=== PATIENT | female | born 2005 | race Two or more races ===

== ENCOUNTER 2024-05-27 09:26 | Emergency (ER) | payer OTHER ==
[~2024-05-27] VITALS: Ht 154.9 cm; Wt 72.3 kg
[2024-05-27] MEDS: ACETAMINOPHEN 500 MG TAB PO ONE (12:34)
[2024-05-27 13:07] VITALS: BP 122/58; TEMP 98.3; O2SAT 100
[2024-05-27] MEDS: KETOROLAC 60MG 2ML VIAL IM ONE (13:31)
== END 2024-05-27 13:49 | disposition home or self-care (01) ==
LOC: M ED 09:26
DX: S06.0X9A Concussion with loss of consciousness of unspecified duration, initial encounter (principal); Y92.9 Unspecified place or not applicable; Y93.9 Activity, unspecified; Y99.0 Civilian activity done for income or pay; W00.0XXA Fall on same level due to ice and snow, initial encounter
CPT/HCPCS: 70450; 72125; 96372; 99284; J1885

== ENCOUNTER 2024-06-02 18:57 | Inpatient (IN) | payer OTHER ==
[~2024-06-02] VITALS: Ht 154.9 cm; Wt 76.2 kg
[2024-06-02 19:48] LABS: BASO % 0.3 % (0.0-1.0); EOS # 0.2 10^3/uL (0.0-0.5); EOS % 1.6 % (0.0-3.0); HEMOGLOBIN 11.5 g/dl (12.0-15.5); LYMPH # 1.8 10^3/uL (1.5-5.0); LYMPH % 17.9 % (24.0-44.0); MEAN CORPUSCULAR HEMOGLOBIN 27.4 pg (27.0-33.0); MEAN CORPUSCULAR HGB CONC 32.9 g/dl (32.0-36.5); MEAN CORPUSCULAR VOLUME 83.5 fl (80.0-96.0); MONO % 10.3 % (2.0-8.0); NEUTROPHILS % 69.6 % (36.0-66.0); PLATELET COUNT, AUTOMATED 269 10^3/uL (150-450); RED BLOOD COUNT 4.19 10^6/uL (4.00-5.40); WHITE BLOOD COUNT 10.1 10^3/uL (4.0-10.0)
[2024-06-02 20:16] LABS: ALBUMIN 3.5 G/DL (3.2-5.2); BILIRUBIN,DIRECT 0.2 MG/DL (<0.4); BILIRUBIN,TOTAL 0.5 MG/DL (0.3-1.2); CALCIUM LEVEL 9.3 MG/DL (8.5-10.1); CREATININE FOR GFR 3.87 MG/DL (0.55-1.30); GLOMERULAR FILTRATION RATE 15.6 (>60); POTASSIUM SERUM 4.5 MMOL/L (3.5-5.1); TOTAL PROTEIN 6.8 G/DL (5.7-8.2)
[2024-06-03 00:40] LABS: BASO % 0.4 % (0.0-1.0); EOS # 0.2 10^3/uL (0.0-0.5); HEMOGLOBIN 11.2 g/dl (12.0-15.5); LYMPH # 1.9 10^3/uL (1.5-5.0); MEAN CORPUSCULAR HEMOGLOBIN 27.9 pg (27.0-33.0); MEAN CORPUSCULAR HGB CONC 33.9 g/dl (32.0-36.5); MEAN CORPUSCULAR VOLUME 82.3 fl (80.0-96.0); MONO # 0.8 10^3/uL (0.0-0.8); NEUTROPHILS # 6.5 10^3/uL (1.5-8.5); NEUTROPHILS % 69.3 % (36.0-66.0); PLATELET COUNT, AUTOMATED 243 10^3/uL (150-450); RED BLOOD COUNT 4.01 10^6/uL (4.00-5.40); WHITE BLOOD COUNT 9.4 10^3/uL (4.0-10.0)
[2024-06-03] MEDS: NS (Normal Saline) 0.9% 1,000 ML IV ONE (00:46)
[2024-06-03 01:07] LABS: LIPASE 42 U/L (12-53)
[2024-06-03 01:09] LABS: ALBUMIN 3.5 G/DL (3.2-5.2); ALKALINE PHOSPHATASE 65 U/L (35-104); ALT/SGPT < 9 U/L (7.0-40); AST/SGOT 11 U/L (<34); BILIRUBIN,DIRECT 0.2 MG/DL (<0.4); BILIRUBIN,TOTAL 0.6 MG/DL (0.3-1.2); BLOOD UREA NITROGEN 35 MG/DL (9-23); CALCIUM LEVEL 9.1 MG/DL (8.5-10.1); CARBON DIOXIDE LEVEL 24 MMOL/L (20-31); CHLORIDE LEVEL 106 MMOL/L (98-107); CREATININE FOR GFR 3.91 MG/DL (0.55-1.30); GLOMERULAR FILTRATION RATE 15.4 (>60); GLUCOSE, FASTING 87 MG/DL (60-100); SODIUM LEVEL 142 MMOL/L (136-145); TOTAL PROTEIN 6.7 G/DL (5.7-8.2)
[2024-06-03 01:23] LABS: HCG, SERUM QUALITATIVE NEGATIVE (NEGATIVE)
[2024-06-03] MEDS: KETOROLAC 30 MG/ML 1ML VIAL IV ONE (01:36)
[2024-06-03] MEDS ORDERED: MOM 30ML SUSPENSION UDC PO PRN (04:40)
[2024-06-03] MEDS ORDERED: HOME MED LIST COMPLETE! XX SCH (05:55)
[2024-06-03 06:13] LABS: ALBUMIN 2.9 G/DL (3.2-5.2); CALCIUM LEVEL 8.6 MG/DL (8.5-10.1); CREATININE FOR GFR 3.54 MG/DL (0.55-1.30); CREATININE FOR GFR 3.62 MG/DL (0.55-1.30); GLOMERULAR FILTRATION RATE 16.9 (>60); GLOMERULAR FILTRATION RATE 17.3 (>60); PHOSPHORUS LEVEL 6.6 MG/DL (2.5-4.9); POTASSIUM SERUM 4.1 MMOL/L (3.5-5.1)
[2024-06-03 08:48] LABS: INR 1.01; PROTHROMBIN TIME 13.6 SECONDS (12.5-14.5)
[2024-06-03] MEDS: NS (Normal Saline) 0.9% 1,000 ML IV SCH (08:55)
[2024-06-03] MEDS ORDERED: HEPARIN SOD (PORCINE) 5000UNITS/ML 1ML VIAL/SYRINGE SC SCH (09:00)
[2024-06-03] MEDS: ACETAMINOPHEN 325 MG TAB PO PRN (09:01)
[2024-06-03 09:42] LABS: CREATININE,RANDOM URINE 134.6 MG/DL
[2024-06-03] MEDS: predniSONE 10MG TAB PO SCH (09:47)
[2024-06-03 10:25] LABS: PERCENT SATURATION 12.7 % (13.2-45.0)
[2024-06-03 10:29] LABS: FERRITIN 36.9 NG/ML (7.3-270.7)
[2024-06-03 10:55] LABS: AMPHETAMINES LEVEL URINE NEGATIVE (NEGATIVE); BARBITURATES URINE NEGATIVE (NEGATIVE); BENZODIAZEPINES URINE NEGATIVE (NEGATIVE); CANNABINOIDS URINE NEGATIVE (NEGATIVE); COCAINE METABOLITE URINE NEGATIVE (NEGATIVE); PHENCYCLIDINE URINE NEGATIVE (NEGATIVE)
[2024-06-03 10:56] LABS: METHADONE URINE NEGATIVE (NEGATIVE); OPIATES URINE NEGATIVE (NEGATIVE)
[2024-06-03] MEDS: CALCIUM ACETATE 667MG GELCAP PO SCH (12:29)
[2024-06-03 16:00] VITALS: BP 102/51; TEMP 97.7; O2SAT 99
[2024-06-03] MEDS ORDERED: predniSONE 10MG TAB PO SCH (21:00)
[2024-06-03 21:10] VITALS: BP 105/51; TEMP 97.9; O2SAT 100
[2024-06-04 03:57] VITALS: BP 114/67; TEMP 97.5; O2SAT 96
[2024-06-04 05:53] LABS: BASO % 0.1 % (0.0-1.0); HEMATOCRIT 34.5 % (36.0-47.0); HEMOGLOBIN 11.5 g/dl (12.0-15.5); LYMPH # 0.8 10^3/uL (1.5-5.0); LYMPH % 5.1 % (24.0-44.0); MEAN CORPUSCULAR HEMOGLOBIN 27.4 pg (27.0-33.0); MEAN CORPUSCULAR HGB CONC 33.3 g/dl (32.0-36.5); MEAN CORPUSCULAR VOLUME 82.1 fl (80.0-96.0); MONO # 0.3 10^3/uL (0.0-0.8); MONO % 1.8 % (2.0-8.0); NEUTROPHILS # 15.1 10^3/uL (1.5-8.5); NEUTROPHILS % 92.4 % (36.0-66.0); PLATELET COUNT, AUTOMATED 270 10^3/uL (150-450); WHITE BLOOD COUNT 16.3 10^3/uL (4.0-10.0)
[2024-06-04 06:33] LABS: CALCIUM LEVEL 8.9 MG/DL (8.5-10.1); CREATININE FOR GFR 1.78 MG/DL (0.55-1.30); GLOMERULAR FILTRATION RATE 38.3 (>60); MAGNESIUM LEVEL 1.7 MG/DL (1.8-2.4); PHOSPHORUS LEVEL 4.4 MG/DL (2.5-4.9); POTASSIUM SERUM 4.9 MMOL/L (3.5-5.1)
[2024-06-04] MEDS ORDERED: NS (Normal Saline) 0.9% 1,000 ML IV SCH (08:15)
[2024-06-04] MEDS: MAGNESIUM OXIDE 400MG TAB (MAG-OX) PO SCH (08:21)
[2024-06-04] MEDS: DOCUSATE SODIUM 100MG CAPSULE PO SCH (08:21)
[2024-06-04] MEDS ORDERED: POLYETHYLENE GLYCOL (MIRALAX) 238GM BOTTLE PO ONE (09:00)
[2024-06-04] MEDS: MIRALAX *UNIT DOSE* 17GM PACKET PO ONE (09:24)
[2024-06-04] MEDS ORDERED: PRED10TA2 PO (09:52)
[2024-06-04] MEDS ORDERED: MIRA33506 PO (10:26)
[2024-06-04] MEDS ORDERED: PRED20TA PO (11:20)
[2024-06-04] MEDS ORDERED: MIRALAX *UNIT DOSE* 17GM PACKET PO PRN (21:00)
== END 2024-06-04 11:50 | disposition home or self-care (01) | DRG 684 ==
LOC: M ED 18:57 → M ED INP 06-03 04:38 → M MSPAV 06-03 15:54
PROVIDERS: ADMIT Family Medicine; ATTEND Internal Medicine
DX: N17.9 Acute kidney failure, unspecified (principal); R10.32 Left lower quadrant pain; N10 Acute pyelonephritis; K59.00 Constipation, unspecified

== ENCOUNTER 2025-02-22 21:56 | Emergency (ER) | payer OTHER ==
[~2025-02-22] VITALS: Ht 154.9 cm; Wt 90.6 kg
[~2025-02-22 21:56] MED LIST: MIRA33506 PO; PRED10TA2 PO; PRED20TA PO
[2025-02-22 22:49] LABS: KETONE, URINE AUTO RFX NEGATIVE (NEGATIVE); MUCUS, URINE RFX SMALL (NEGATIVE); NITRITE, URINE AUTO RFX NEGATIVE (NEGATIVE); RBC, URINE AUTO RFX 11 /HPF (0-3); SQUAM EPITHELIAL CELL UR AURFX 3 /HPF (0-6)
[2025-02-22 22:52] LABS: LEUKOCYTE ESTERASE UR AUTO RFX 3+ (NEGATIVE); WBC, URINE AUTO RFX 46 /HPF (0-3)
[2025-02-22 23:34] LABS: Trichomonas vaginalis (AMP) NOT DETECTED (NEGATIVE)
[2025-02-22 23:58] LABS: GC DNA AMPLIFICATION NEGATIVE (NEGATIVE)
[2025-02-23 01:20] LABS: URINE PREG TEST NEGATIVE (NEGATIVE)
[2025-02-23] MEDS ORDERED: DOXY-441 PO (03:01)
[2025-02-23] MEDS: DOXYCYCLINE HYCLATE 100 MG TABLET PO ONE (03:09)
[2025-02-23 03:23] VITALS: BP 126/76; TEMP 97.8; O2SAT 97
[2025-02-23] MEDS ORDERED: FLUC150T9 PO (03:38)
== END 2025-02-23 03:25 | disposition home or self-care (01) ==
LOC: M ED 21:56
DX: A74.9 Chlamydial infection, unspecified (principal); Z79.2 Long term (current) use of antibiotics; Z79.899 Other long term (current) drug therapy; Z79.52 Long term (current) use of systemic steroids

== ENCOUNTER 2025-04-05 13:13 | Emergency (ER) | payer OTHER ==
[~2025-04-05] VITALS: Ht 154.9 cm; Wt 95.1 kg
[~2025-04-05 13:13] MED LIST changes: +DOXY-441 PO; +FLUC150T9 PO
[2025-04-05 13:27] VITALS: BP 126/61; TEMP 98.2; O2SAT 97
== END 2025-04-05 14:50 | disposition left against medical advice (07) ==
LOC: M ED 13:13
DX: Z53.21 Procedure and treatment not carried out due to patient leaving prior to being seen by health care provider (principal)